=== PATIENT | female | born 1995 | race Caucasian/White ===

== ENCOUNTER 2016-09-30 11:41 | Emergency (ER) | payer BC, OTHER ==
[~2016-09-30] VITALS: Ht 162.6 cm; Wt 45.5 kg
[2016-09-30 11:44] VITALS: TEMP 97
[2016-09-30 12:09] LABS: PH 5 (5-8); SQUAMOUS EPITHELIAL 0-2 /hpf; URINE APPEARANCE Clear; URINE BACTERIA Rare /hpf; URINE BILIRUBIN Negative (NEGATIVE); URINE BLOOD Negative (NEGATIVE); URINE COLOR Yellow; URINE GLUCOSE Negative (NEGATIVE); URINE KETONE 2+ (NEGATIVE); URINE RBC 0-2 /hpf; URINE UROBILINOGEN Negative (NEGATIVE); URINE WBC 0-2 /hpf
[2016-09-30 12:52] LABS: BASO # 0.1 (0.0-0.2); BASO % 0.6 % (0.0-2.0); EOS % 0.2 % (0-4.0); GRAN # 5.8 (1.4-6.5); GRAN % 71.4 % (42.2-75.2); HEMATOCRIT 44.6 % (37.0-47.0); HEMOGLOBIN 14.5 g/dl (12.5-16.0); LYMPH # 1.9 (1.2-3.4); LYMPH % 23.2 % (20.0-51.0); MEAN CELL VOLUME 90 fl (80.0-100.0); MEAN CORPUSCULAR HEMOGLOBIN 29 pg (27.0-31.0); MEAN CORPUSCULAR HGB CONC 33 g/dl (33.0-37.0); MEAN PLATELET VOLUME 10.4 fl (7.4-10.4); MONO # 0.4 (0.1-0.6); MONO % 4.4 % (1.7-9.3); PLATELET COUNT 355 K/mm3 (130-400); RED BLOOD COUNT 4.94 M/mm3 (4.10-5.30); REDCELL DISTRIBUTION WIDTH-CV 13.1 % (11.5-14.5); WHITE BLOOD COUNT 8.1 K/mm3 (4.8-10.8)
[2016-09-30 13:02] LABS: ADJUSTED CALCIUM 9.2 mg/dL (8.4-10.2); ALBUMIN 5.2 gm/dL (3.5-5.0); BILIRUBIN,TOTAL 0.9 mg/dL (0.0-1.0); CALCIUM 10.2 mg/dL (8.4-10.2); CREATININE, serum 1.05 mg/dL (0.52-1.25); POTASSIUM 3.8 mmol/L (3.4-5.0); TOTAL PROTEIN 8.7 gm/dL (6.4-8.2)
[2016-09-30 13:40] VITALS: BP 112/78; PULSE 94
== END 2016-09-30 13:41 | disposition home or self-care (01) ==
LOC: COL.ER 11:41
PROVIDERS: Physician Assistant
DX: R55 Syncope and collapse (principal); R94.31 Abnormal electrocardiogram [ECG] [EKG]; F41.8 Other specified anxiety disorders
CPT/HCPCS: J2405; J7030

== ENCOUNTER 2016-10-18 02:23 | Emergency (ER) | payer BC, OTHER ==
[~2016-10-18] VITALS: Ht 162.6 cm; Wt 58.2 kg
[2016-10-18 02:53] LABS: BASO % 0.7 % (0.0-2.0); EOS # 0.1 (0.0-0.7); EOS % 1.5 % (0-4.0); GRAN # 2.8 (1.4-6.5); GRAN % 51.2 % (42.2-75.2); HEMATOCRIT 39.6 % (37.0-47.0); HEMOGLOBIN 12.7 g/dl (12.5-16.0); LYMPH # 2.2 (1.2-3.4); LYMPH % 39.6 % (20.0-51.0); MEAN CELL VOLUME 92 fl (80.0-100.0); MEAN CORPUSCULAR HEMOGLOBIN 29 pg (27.0-31.0); MEAN CORPUSCULAR HGB CONC 32 g/dl (33.0-37.0); MEAN PLATELET VOLUME 9.9 fl (7.4-10.4); MONO # 0.4 (0.1-0.6); MONO % 6.6 % (1.7-9.3); PLATELET COUNT 275 K/mm3 (130-400); RED BLOOD COUNT 4.32 M/mm3 (4.10-5.30); REDCELL DISTRIBUTION WIDTH-CV 13.5 % (11.5-14.5); WHITE BLOOD COUNT 5.5 K/mm3 (4.8-10.8)
[2016-10-18 03:00] VITALS: TEMP 97.4
[2016-10-18 03:06] LABS: ADJUSTED CALCIUM 8.3 mg/dL (8.4-10.2); ALBUMIN 4.6 gm/dL (3.5-5.0); BILIRUBIN,TOTAL 0.4 mg/dL (0.0-1.0); CALCIUM 8.8 mg/dL (8.4-10.2); CREATININE, serum 0.81 mg/dL (0.52-1.25)
[2016-10-18 05:39] VITALS: BP 107/74; PULSE 75
== END 2016-10-18 06:25 | disposition home or self-care (01) ==
LOC: COL.ER 02:23
PROVIDERS: Physician Assistant
DX: F10.120 Alcohol abuse with intoxication, uncomplicated (principal); Y90.7 Blood alcohol level of 200-239 mg/100 ml
CPT/HCPCS: J2405; J7030

== ENCOUNTER 2017-03-08 17:11 | Emergency (ER) | payer BC, OTHER ==
[~2017-03-08] VITALS: Ht 162.6 cm; Wt 59.1 kg
[2017-03-08 17:17] VITALS: BP 134/86; TEMP 99.5
[2017-03-08] MEDS ORDERED: ZITHROMAX 250M250 MG PO (17:21)
[2017-03-08] MEDS ORDERED: SPRINTEC 35 MCG1 TAB PO (17:21)
[2017-03-08] MEDS ORDERED: CELEXA10 MG PO (17:22)
[2017-03-08] MEDS ORDERED: ZOVIRAX400 MG PO (19:22)
[2017-03-08] MEDS ORDERED: NORCO 325 MG-51 TAB PO (19:22)
[2017-03-08 19:59] VITALS: PULSE 90
== END 2017-03-08 20:00 | disposition home or self-care (01) ==
LOC: COL.ER 17:11
DX: B00.2 Herpesviral gingivostomatitis and pharyngotonsillitis (principal); J02.9 Acute pharyngitis, unspecified